=== PATIENT | male | born 1940 | race Caucasian/White ===

== ENCOUNTER 2019-12-01 12:32 | Emergency (ER) | payer OTHER ==
[~2019-12-01] VITALS: Ht 208.3 cm; Wt 72.0 kg
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
--- NOTE | 2019-12-01 13:30 | NUR ---
pt back from radiology. nadn at return.
--- NOTE | 2019-12-01 14:00 | NUR ---
pt a&o, resps even and unlabored, all results back. awaiting MD and dispo.
[2019-12-01 14:47] VITALS: BP 140/74
--- NOTE | 2019-12-01 15:01 | NUR ---
REPORT GIVEN TO ONESIMO BOB AT BEDSIDE, PT A&O, RESPS EVEN AND UNLABORED, NO COMPLAINT AT THIS TIME. PT TO HAVE CT SCAN, CT CALLED TO SEE WHERE PATIENT IS IN QUE. CT STATES PT IS NEXT TO BE COLLECTED.
--- NOTE | 2019-12-01 15:07 | NUR ---
order received from NIGHAT Cintron to administer 5 mg norco.
[2019-12-01] MEDS ORDERED: HYDROcodone/APAP 5/325 TABLET ONE (15:08)
--- NOTE | 2019-12-01 15:17 | NUR ---
pt refuses norco when offered, states he is driving himself home. RN Syeda notified.
[2019-12-01] MEDS ORDERED: HYDROcodone/APAP 5/325 TABLET PO ONE (15:30)
== END 2019-12-01 17:02 | disposition home or self-care (01) ==
LOC: ED 14:22
DX: M79.622 Pain in left upper arm (principal); W18.09XA Striking against other object with subsequent fall, initial encounter; Y93.89 Activity, other specified; Y92.098 Other place in other non-institutional residence as the place of occurrence of the external cause; Y99.8 Other external cause status
CPT/HCPCS: 99284